=== PATIENT | female | born 1950 | race Caucasian/White ===

== ENCOUNTER 2016-05-21 02:47 | Emergency (ER) | payer MEDICARE, BC ==
[~2016-05-21] VITALS: Ht 170.2 cm; Wt 76.4 kg
[~2016-05-21 02:47] MED LIST: CALCIUM CARBON500 M1 PO; CLARITIN PO; DIOVAN80 M1 PO; FERROUS SU325 MG/TAB PO; FOLIC ACID PO; GLUCOSAMINE/CHONDROI; VITAMIN C250250 MG PO
[2016-05-21 02:52] VITALS: TEMP 98.9
[2016-05-21] MEDS ORDERED: HYZAAR 12.5 MG-1 TAB PO (03:04)
[2016-05-21] MEDS ORDERED: PROTONIX 40MG T40 MG PO (03:05)
[2016-05-21] MEDS ORDERED: CALCIUM CITRATE1 TA4 PO (03:06)
[2016-05-21] MEDS ORDERED: BREO IH (03:06)
[2016-05-21 03:15] LABS: BASO # 0.1 (0.0-0.2); BASO % 1.1 % (0.0-2.0); EOS # 0.3 (0.0-0.7); EOS % 2.9 % (0-4.0); GRAN # 3.7 (1.4-6.5); GRAN % 41.8 % (42.2-75.2); LYMPH # 3.7 (1.2-3.4); LYMPH % 41.9 % (20.0-51.0); MEAN CELL VOLUME 91 fl (80.0-100.0); MEAN CORPUSCULAR HEMOGLOBIN 30 pg (27.0-31.0); MEAN CORPUSCULAR HGB CONC 33 g/dl (33.0-37.0); MEAN PLATELET VOLUME 9.8 fl (7.4-10.4); MONO # 1.1 (0.1-0.6); MONO % 12.2 % (1.7-9.3); PLATELET COUNT 304 K/mm3 (130-400); RED BLOOD COUNT 4.06 M/mm3 (4.10-5.30); REDCELL DISTRIBUTION WIDTH-CV 12.2 % (11.5-14.5); WHITE BLOOD COUNT 8.8 K/mm3 (4.8-10.8)
[2016-05-21 03:16] LABS: HEMATOCRIT 36.9 % (37.0-47.0)
[2016-05-21 03:19] LABS: PROTHROMBIN TIME 10.9 SECONDS (9.7-12.8)
[2016-05-21 03:20] LABS: ADJUSTED CALCIUM 9.2 mg/dL (8.4-10.2); ALANINE AMINOTRANSFERASE 42 U/L (9-52); ALBUMIN 4.2 gm/dL (3.5-5.0); ALKALINE PHOSPHATASE 79 U/L (50-136); ANION GAP 13 mmol/L (7-16); BILIRUBIN,TOTAL 0.5 mg/dL (0.0-1.0); BLOOD UREA NITROGEN 14 mg/dL (7-17); CALCIUM 9.4 mg/dL (8.4-10.2); CARBON DIOXIDE 24 mmol/L (22-30); CHLORIDE 101 mmol/L (98-107); CREATININE, serum 0.92 mg/dL (0.52-1.25); GLUCOSE 106 mg/dL (74-106); POTASSIUM 3.7 mmol/L (3.4-5.0); SODIUM 138 mmol/L (137-145); TOTAL PROTEIN 7.3 gm/dL (6.4-8.2)
[2016-05-21 03:22] LABS: PARTIAL THROMBOPLASTIN TIME 28.3 SECONDS (26.0-37.0)
[2016-05-21 03:32] LABS: B-TYPE NATRIURETIC PEPTIDE 53 pg/mL (0-125)
[2016-05-21 03:38] LABS: TROPONIN-I < 0.012 ng/mL (0.000-0.034)
[2016-05-21 06:00] VITALS: BP 118/93; PULSE 58
[2016-05-22] MEDS ORDERED: GLUCOSAMINE & C1 CA1 PO (13:52)
[2016-05-22] MEDS ORDERED: CLARITIN 1010 MG/TAB PO (14:03)
== END 2016-05-21 06:52 | disposition home or self-care (01) ==
LOC: COL.ER 02:47
PROVIDERS: Emergency Medicine
DX: R07.9 Chest pain, unspecified (principal); K21.9 Gastro-esophageal reflux disease without esophagitis; I10 Essential (primary) hypertension
CPT/HCPCS: C9113

== ENCOUNTER 2016-05-22 13:24 | Day surgery (SDC) | payer MEDICARE, BC ==
[~2016-05-22] VITALS: Ht 170.2 cm; Wt 73.4 kg
[~2016-05-22 13:24] MED LIST changes: +BREO IH; +CALCIUM CITRATE1 TA4 PO; +HYZAAR 12.5 MG-1 TAB PO; +PROTONIX 40MG T40 MG PO
[2016-05-22] MEDS ORDERED: GLUCOSAMINE & C1 CA1 PO (13:52)
[2016-05-22] MEDS ORDERED: CLARITIN 1010 MG/TAB PO (14:03)
[2016-05-22 14:29] VITALS: BP 135/93; PULSE 77; TEMP 97.8
[2016-05-22 15:30] VITALS: BP 120/86; PULSE 81; TEMP 97.6
[2016-05-22 15:45] VITALS: BP 119/90; PULSE 92
[2016-05-22 16:00] VITALS: BP 114/83; PULSE 72
== END 2016-05-22 16:15 | disposition home or self-care (01) ==
LOC: SDCO 13:24
DX: K21.9 Gastro-esophageal reflux disease without esophagitis (principal); K44.9 Diaphragmatic hernia without obstruction or gangrene; R13.10 Dysphagia, unspecified; I10 Essential (primary) hypertension; R01.1 Cardiac murmur, unspecified
CPT/HCPCS: OP; J2250; J3010; J7030

== ENCOUNTER → 2016-08-29 | Outpatient (CLI) | payer MEDICARE, BC ==
[~2016-08-29] MED LIST changes: +CLARITIN 1010 MG/TAB PO; +GLUCOSAMINE & C1 CA1 PO
== END ==
LOC: MC.RAD 08:03
DX: Z12.31 Encounter for screening mammogram for malignant neoplasm of breast (principal)